=== PATIENT | female | born 1960 | race Caucasian/White ===

== ENCOUNTER 2017-11-10 09:12 | Day surgery (SDC) | payer BC ==
[~2017-11-10] VITALS: Ht 167.6 cm; Wt 73.2 kg
[2017-11-10] MEDS ORDERED: COZAAR 25MG25 MG/TAB PO (09:39)
[2017-11-10] MEDS ORDERED: ALLEGRA 180MG180 MG PO (09:40)
[2017-11-10] MEDS ORDERED: MACROBID 1100 MG/CAP PO (09:40)
[2017-11-10] MEDS ORDERED: NIACIN 64 MG-501 TA1 PO (09:41)
[2017-11-10] MEDS ORDERED: ASPIRIN 81M81 MG/TA2 PO (09:41)
[2017-11-10] MEDS ORDERED: CITRACAL + D CA1 TAB PO (09:41)
[2017-11-10] MEDS ORDERED: FLONASEALLERGY NS (09:42)
[2017-11-10] MEDS ORDERED: MULTI VITAMINS1 TAB PO (09:42)
[2017-11-10] MEDS ORDERED: PLAQUENIL 200M200 MG PO (09:43)
[2017-11-10 10:27] VITALS: BP 143/82; PULSE 66; TEMP 98.5
[2017-11-10] MEDS ORDERED: ZANTAC 150MG T150 MG PO (11:23)
[2017-11-10 11:35] VITALS: BP 110/61; PULSE 63; TEMP 97.9
[2017-11-10 11:50] VITALS: BP 123/78; PULSE 70
[2017-11-10 12:05] VITALS: BP 119/63; PULSE 53
[2017-11-10 12:20] VITALS: BP 108/53; PULSE 64
== END 2017-11-10 12:30 | disposition home or self-care (01) ==
LOC: SDCO 09:12
DX: K57.30 Diverticulosis of large intestine without perforation or abscess without bleeding (principal); K64.0 First degree hemorrhoids; K44.9 Diaphragmatic hernia without obstruction or gangrene; K29.30 Chronic superficial gastritis without bleeding; K58.1 Irritable bowel syndrome with constipation; K59.09 Other constipation; K92.1 Melena; Z79.82 Long term (current) use of aspirin; Z88.1 Allergy status to other antibiotic agents
CPT/HCPCS: J2250; J2405; J3010; J7030